=== PATIENT | male | born 1960 | race Caucasian/White ===

== ENCOUNTER 2017-06-13 12:33 | Inpatient (IN) | payer MEDICARE, MEDICAID ==
[2017-06-13] MEDS: ALBUTEROL 0.5% (NEB) 2.5 MG/0.5 ML AMP INH (13:07)
[2017-06-13] MEDS: SODIUM CHLORIDE 0.9% 1L BAG IV* (13:11)
[2017-06-13] MEDS: ACETAMINOPHEN 325 MG TAB PO (13:11)
[2017-06-13 13:13] LABS: ADD MAN DIFF? NO
[2017-06-13 13:14] LABS: WHITE BLOOD COUNT 18.3 10^3/ul (4.8-10.8)
[2017-06-13 13:14] LABS: ABNORMAL IP MESSAGE 1; BASOPHILS % 0.2 % (0.0-2.0); EOSINOPHILS % 0.2 % (0.0-7.0); HEMATOCRIT 30.4 % (42.0-52.0); HEMOGLOBIN 10.5 g/dl (14.0-18.0); LYMPHOCYTES # 0.8 10^3/ul (0.8-2.9); LYMPHOCYTES % 4.5 % (15.0-51.0); MEAN CORPUSCULAR HEMOGLOBIN 30.7 pg (29.0-33.0); MEAN CORPUSCULAR HGB CONC 34.5 g/dl (32.0-37.0); MEAN CORPUSCULAR VOLUME 88.9 fl (82.0-101.0); MEAN PLATELET VOLUME 9.9 fl (7.4-10.4); MONOCYTE # 1.9 10^3/ul (0.3-0.9); MONOCYTES % 10.3 % (0.0-11.0); NEUTROPHIL # 15.4 10^3/ul (1.6-7.5); NEUTROPHILS % 84.3 % (39.0-77.0); PLATELET COUNT 160 10^3/UL (140-415); POSITIVE DIFF @See below; RED BLOOD COUNT 3.42 10^6/ul (4.70-6.10); RED CELL DISTRIBUTION WIDTH 13.2 % (11.5-14.5)
[2017-06-13] MEDS: CEFTRIAXONE 1 GM/50 ML (PMX) 50 ML IVPB (13:29)
[2017-06-13 13:32] LABS: LACTIC ACID 1.9 mmol/L (0.5-2.0)
[2017-06-13 13:34] LABS: ALANINE AMINOTRANSFERASE 35 IU/L (13-69); ALBUMIN 5.1 g/dl (3.3-4.9); ALBUMIN/GLOBULIN RATIO 1.45; ALKALINE PHOSPHATASE 116 IU/L (42-121); ANION GAP 24 (8-16); ASPARTATE AMINO TRANSFERASE 21 IU/L (15-46); BLOOD UREA NITROGEN 32 mg/dl (7-20); CALCIUM 8.7 mg/dl (8.4-10.2); CARBON DIOXIDE 28 mmol/L (21-31); CHLORIDE 96 mmol/L (97-110); CREATININE 5.88 mg/dl (0.61-1.24); GLUCOSE 170 mg/dl (70-220); INR 0.93; LIPASE 137 U/L (23-300); PARTIAL THROMBOPLASTIN TIME 27.1 Sec (25.0-35.0); PROTIME 12.6 Sec (11.9-14.9); SODIUM 144 mmol/L (135-144); TOTAL PROTEIN 8.6 g/dl (6.1-8.1)
[2017-06-13 13:46] LABS: TROPONIN-I 0.017 ng/ml (0.00-0.12)
[2017-06-13] MEDS: AZITHROMYCIN 500MG/NS (PMX) 250 ML IVPB (13:53)
[2017-06-13 17:11] LABS: LACTIC ACID 4.7 mmol/L (0.5-2.0)
[2017-06-13] MEDS ORDERED: NACL 0.9% 3 ML SYG IV (19:30)
[2017-06-13] MEDS ORDERED: VANCOMYCIN IV PER PHARMACY XX (19:30)
[2017-06-13] MEDS: SOD CHLORIDE 0.9% 250 ML IV (19:30)
[2017-06-13] MEDS ORDERED: HYDROCODONE/APAP (5/325) TAB PO (19:30)
[2017-06-13] MEDS ORDERED: ONDANSETRON 4 MG INJ IV (19:30)
[2017-06-13] MEDS: PIPER-TAZO 2.25 GM (PMX) 50 ML IVPB (21:01)
[2017-06-13] MEDS: SOD CHLORIDE 0.9% 1,000 ML IV (21:22)
[2017-06-13] MEDS: FAMOTIDINE 20 MG INJ IV (21:30)
[2017-06-13] MEDS: HEPARIN 5,000 UNIT/0.5 ML VIAL SC (21:31)
[2017-06-13] MEDS: ATORVASTATIN 20 MG TAB PO (22:35)
[2017-06-13] MEDS: VANCOMYCIN 1.75 GM in SOD CHLORIDE 0.9% 500 ML IVPB (22:35)
[2017-06-13] MEDS: INSULIN ASPART [NOVOLOG] 3 ML PEN SC (23:22)
[2017-06-14] MEDS: ACCU-CHEK XX (02:00)
[2017-06-14] MEDS: INSULIN ASPART [NOVOLOG] 3 ML PEN SC ×4 (08:26→20:39)
[2017-06-14] MEDS ORDERED: [UNRECOGNIZED DRUG - REMARK] XX (09:00)
[2017-06-14] MEDS: TAMSULOSIN (SR) 0.4 MG CAP PO (09:30)
[2017-06-14] MEDS: PIPER-TAZO 2.25 GM (PMX) 50 ML IVPB ×2 (09:30→20:22)
[2017-06-14] MEDS: METOCLOPRAMIDE 10 MG TAB PO (09:31)
[2017-06-14] MEDS: ASPIRIN 81 MG TAB PO (09:31)
[2017-06-14] MEDS: CHOLECALCIFEROL 1,000 UNIT TAB PO (09:31)
[2017-06-14] MEDS: ALLOPURINOL 100 MG TAB PO (09:31)
[2017-06-14] MEDS: HEPARIN 5,000 UNIT/0.5 ML VIAL SC ×2 (09:32→20:23)
[2017-06-14] MEDS: SOD CHLORIDE 0.9% 1,000 ML IV ×2 (11:46→18:34)
[2017-06-14 14:00] LABS: ADD MAN DIFF? NO
[2017-06-14 14:03] LABS: WHITE BLOOD COUNT 12.5 10^3/ul (4.8-10.8)
[2017-06-14 14:03] LABS: BASOPHIL # 0.1 10^3/ul (0.0-0.1); BASOPHILS % 0.5 % (0.0-2.0); EOSINOPHILS % 0.2 % (0.0-7.0); HEMATOCRIT 28.6 % (42.0-52.0); HEMOGLOBIN 9.5 g/dl (14.0-18.0); LYMPHOCYTES # 1.9 10^3/ul (0.8-2.9); LYMPHOCYTES % 15.1 % (15.0-51.0); MEAN CORPUSCULAR HGB CONC 33.2 g/dl (32.0-37.0); MEAN CORPUSCULAR VOLUME 90.2 fl (82.0-101.0); MEAN PLATELET VOLUME 9.9 fl (7.4-10.4); MONOCYTE # 1.4 10^3/ul (0.3-0.9); NEUTROPHIL # 9.1 10^3/ul (1.6-7.5); NEUTROPHILS % 72.6 % (39.0-77.0); PLATELET COUNT 155 10^3/UL (140-415); RED BLOOD COUNT 3.17 10^6/ul (4.70-6.10); RED CELL DISTRIBUTION WIDTH 13.2 % (11.5-14.5)
[2017-06-14] MEDS ORDERED: PHENOL 1.4% SOLN 180 ML BTL MT (15:30)
[2017-06-14] MEDS: SEVELAMER 800 MG TAB PO (17:52)
[2017-06-14] MEDS: SERTRALINE 50 MG TAB PO (17:53)
[2017-06-14] MEDS: NIFEdipine (XL) 60 MG TAB PO (19:04)
[2017-06-14] MEDS: BENAZEPRIL 40 MG TAB PO (19:55)
[2017-06-14] MEDS: ATORVASTATIN 20 MG TAB PO (20:21)
[2017-06-14] MEDS: METOPROLOL 25 MG TAB PO (20:21)
[2017-06-15] MEDS: ACCU-CHEK XX (02:00)
[2017-06-15] MEDS: VANCOMYCIN RANDOM LEVEL XX (05:28)
[2017-06-15 06:24] LABS: ADD MAN DIFF? NO
[2017-06-15 06:29] LABS: BASOPHIL # 0.1 10^3/ul (0.0-0.1); BASOPHILS % 0.5 % (0.0-2.0); EOSINOPHILS % 0.1 % (0.0-7.0); HEMATOCRIT 27.2 % (42.0-52.0); HEMOGLOBIN 9.1 g/dl (14.0-18.0); LYMPHOCYTES # 2.1 10^3/ul (0.8-2.9); LYMPHOCYTES % 13.9 % (15.0-51.0); MEAN CORPUSCULAR HEMOGLOBIN 30.5 pg (29.0-33.0); MEAN CORPUSCULAR HGB CONC 33.5 g/dl (32.0-37.0); MEAN CORPUSCULAR VOLUME 91.3 fl (82.0-101.0); MEAN PLATELET VOLUME 10.2 fl (7.4-10.4); MONOCYTE # 1.2 10^3/ul (0.3-0.9); MONOCYTES % 7.7 % (0.0-11.0); NEUTROPHIL # 11.6 10^3/ul (1.6-7.5); NEUTROPHILS % 77.2 % (39.0-77.0); PLATELET COUNT 177 10^3/UL (140-415); RED BLOOD COUNT 2.98 10^6/ul (4.70-6.10); RED CELL DISTRIBUTION WIDTH 13.2 % (11.5-14.5)
[2017-06-15 06:29] LABS: WHITE BLOOD COUNT 15.1 10^3/ul (4.8-10.8)
[2017-06-15 07:17] LABS: ANION GAP 23 (8-16); BLOOD UREA NITROGEN 64 mg/dl (7-20); CALCIUM 7.8 mg/dl (8.4-10.2); CARBON DIOXIDE 24 mmol/L (21-31); CHLORIDE 98 mmol/L (97-110); CREATININE 9.08 mg/dl (0.61-1.24); GLUCOSE 163 mg/dl (70-220); POTASSIUM 5.1 mmol/L (3.5-5.1); SODIUM 140 mmol/L (135-144)
[2017-06-15 08:05] LABS: HEMOGLOBIN A1C 7.2 % (0-5.9)
[2017-06-15] MEDS: PIPER-TAZO 2.25 GM (PMX) 50 ML IVPB ×2 (08:40→21:55)
[2017-06-15] MEDS: CHOLECALCIFEROL 1,000 UNIT TAB PO (08:40)
[2017-06-15] MEDS: SERTRALINE 50 MG TAB PO (08:41)
[2017-06-15] MEDS: SEVELAMER 800 MG TAB PO ×3 (08:41→18:32)
[2017-06-15] MEDS: METOCLOPRAMIDE 10 MG TAB PO (08:41)
[2017-06-15] MEDS: TAMSULOSIN (SR) 0.4 MG CAP PO (08:41)
[2017-06-15] MEDS: BENAZEPRIL 40 MG TAB PO (08:42)
[2017-06-15] MEDS: NIFEdipine (XL) 60 MG TAB PO (08:42)
[2017-06-15] MEDS: ALLOPURINOL 100 MG TAB PO (08:43)
[2017-06-15] MEDS: METOPROLOL 25 MG TAB PO ×2 (08:43→21:59)
[2017-06-15] MEDS: ASPIRIN 81 MG TAB PO (08:43)
[2017-06-15] MEDS: FUROSEMIDE 40 MG TAB PO (08:44)
[2017-06-15] MEDS ORDERED: NIFEdipine (XL) 60 MG TAB PO (09:00)
[2017-06-15] MEDS: HEPARIN 5,000 UNIT/0.5 ML VIAL SC ×2 (09:24→21:00)
[2017-06-15] MEDS: INSULIN ASPART [NOVOLOG] 3 ML PEN SC ×4 (09:24→21:00)
[2017-06-15] MEDS: VANCOMYCIN 1 GM 250 ML IVPB (11:51)
[2017-06-15] MEDS ORDERED: GLUCOSE GEL 15 GRAM TUBE PO ×2 (14:00)
[2017-06-15] MEDS ORDERED: GLUCOSE GEL 15 GRAM TUBE BUCCAL (14:00)
[2017-06-15] MEDS ORDERED: GLUCAGON 1 MG INJ IM (14:00)
[2017-06-15] MEDS ORDERED: DEXTROSE 50% 50 ML SYRINGE IV ×2 (14:00)
[2017-06-15] MEDS: LINAGLIPTIN 5 MG TABLET PO (14:55)
[2017-06-15 16:28] LABS: HEPATITIS B SURFACE ANTIGEN NEGATIVE (NEGATIVE)
[2017-06-15 20:18] LABS: HEPATITIS B SURFACE ANTIBODY INDETERMINATE (NEGATIVE)
[2017-06-15] MEDS: ATORVASTATIN 20 MG TAB PO (21:55)
[2017-06-15] MEDS: FAMOTIDINE 20 MG INJ IV (21:55)
[2017-06-15] MEDS: INSULIN DETEMIR [LEVEMIR] 3ML CART SC (22:04)
[2017-06-15] MEDS: ACETAMINOPHEN 325 MG TAB PO (22:50)
[2017-06-16] MEDS: ACCU-CHEK XX (02:00)
[2017-06-16] MEDS ORDERED: ALBUTEROL/IPRATROPIUM (NEB) 3 ML AMP HHN (02:30)
[2017-06-16] MEDS: ALBUTEROL/IPRATROPIUM (NEB) 3 ML AMP HHN ×6 (02:49→21:11)
[2017-06-16] MEDS: INSULIN ASPART [NOVOLOG] 3 ML PEN SC ×4 (07:55→21:00)
[2017-06-16] MEDS: FUROSEMIDE 40 MG TAB PO (08:32)
[2017-06-16] MEDS: METOPROLOL 25 MG TAB PO ×2 (08:32→22:17)
[2017-06-16] MEDS: BENAZEPRIL 40 MG TAB PO (08:32)
[2017-06-16] MEDS: SEVELAMER 800 MG TAB PO ×3 (08:33→17:55)
[2017-06-16] MEDS: CHOLECALCIFEROL 1,000 UNIT TAB PO (08:33)
[2017-06-16] MEDS: SERTRALINE 50 MG TAB PO (08:33)
[2017-06-16] MEDS: METOCLOPRAMIDE 10 MG TAB PO (08:33)
[2017-06-16] MEDS: ASPIRIN 81 MG TAB PO (08:33)
[2017-06-16] MEDS: NIFEdipine (XL) 60 MG TAB PO (08:33)
[2017-06-16] MEDS: TAMSULOSIN (SR) 0.4 MG CAP PO (08:34)
[2017-06-16] MEDS: LINAGLIPTIN 5 MG TABLET PO (08:34)
[2017-06-16] MEDS: PIPER-TAZO 2.25 GM (PMX) 50 ML IVPB ×2 (08:34→21:52)
[2017-06-16] MEDS: ALLOPURINOL 100 MG TAB PO (08:34)
[2017-06-16] MEDS: HEPARIN 5,000 UNIT/0.5 ML VIAL SC ×2 (08:40→22:07)
[2017-06-16] MEDS: FAMOTIDINE 20 MG TAB PO (12:28)
[2017-06-16 17:02] LABS: ADD UMIC YES; UR AMORPHOUS CRYSTAL MODERATE /HPF (NONE SEEN); UR ASCORBIC ACID NEGATIVE (NEGATIVE); UR BACTERIA FEW /HPF (NONE SEEN); UR BILIRUBIN (Dip) NEGATIVE (NEGATIVE); UR BLOOD (Dip) NEGATIVE (NEGATIVE); UR CLARITY SLIGHTLY CLOUDY (CLEAR); UR COLOR AMBER (YELLOW); UR GLUCOSE (Dip) NEGATIVE (NEGATIVE); UR KETONES (Dip) NEGATIVE (NEGATIVE); UR LEUKOCYTE ESTERASE (Dip) NEGATIVE Leu/ul (NEGATIVE); UR NITRITE (Dip) NEGATIVE (NEGATIVE); UR RBC 2 /HPF (0-5); UR SPECIFIC GRAVITY (Dip) 1.017 (1.003-1.030); UR TOTAL PROTEIN (Dip) 2+ mg/dl (NEGATIVE); UR UROBILINOGEN (Dip) NEGATIVE (NEGATIVE); UR WBC 5 /HPF (0-5)
[2017-06-16] MEDS: ATORVASTATIN 20 MG TAB PO (21:52)
[2017-06-16] MEDS: INSULIN DETEMIR [LEVEMIR] 3ML CART SC (22:03)
[2017-06-17] MEDS: ALBUTEROL/IPRATROPIUM (NEB) 3 ML AMP HHN ×6 (00:55→21:24)
[2017-06-17] MEDS: ACCU-CHEK XX (02:00)
[2017-06-17 07:38] LABS: ADD MAN DIFF? NO
[2017-06-17 07:47] LABS: WHITE BLOOD COUNT 9.7 10^3/ul (4.8-10.8)
[2017-06-17 07:47] LABS: BASOPHILS % 0.3 % (0.0-2.0); EOSINOPHILS # 0.1 10^3/ul (0.0-0.5); HEMATOCRIT 25.7 % (42.0-52.0); HEMOGLOBIN 8.5 g/dl (14.0-18.0); LYMPHOCYTES # 1.5 10^3/ul (0.8-2.9); LYMPHOCYTES % 15.2 % (15.0-51.0); MEAN CORPUSCULAR HEMOGLOBIN 29.9 pg (29.0-33.0); MEAN CORPUSCULAR HGB CONC 33.1 g/dl (32.0-37.0); MEAN CORPUSCULAR VOLUME 90.5 fl (82.0-101.0); MEAN PLATELET VOLUME 10.8 fl (7.4-10.4); MONOCYTE # 0.7 10^3/ul (0.3-0.9); NEUTROPHIL # 7.3 10^3/ul (1.6-7.5); PLATELET COUNT 192 10^3/UL (140-415); RED BLOOD COUNT 2.84 10^6/ul (4.70-6.10); RED CELL DISTRIBUTION WIDTH 13.1 % (11.5-14.5)
[2017-06-17] MEDS: INSULIN ASPART [NOVOLOG] 3 ML PEN SC ×4 (07:55→21:00)
[2017-06-17] MEDS: SOD CHLORIDE 0.9% 100 ML (08:06)
[2017-06-17] MEDS: IOHEXOL 300MG/ML 150 ML BTL (08:06)
[2017-06-17 08:13] LABS: PHOSPHORUS 7.2 mg/dl (2.5-4.9)
[2017-06-17 08:13] LABS: MAGNESIUM 2.5 mg/dl (1.7-2.5)
[2017-06-17 08:18] LABS: ANION GAP 24 (8-16); BLOOD UREA NITROGEN 75 mg/dl (7-20); CALCIUM 7.7 mg/dl (8.4-10.2); CARBON DIOXIDE 23 mmol/L (21-31); CHLORIDE 98 mmol/L (97-110); CREATININE 9.31 mg/dl (0.61-1.24); GLUCOSE 87 mg/dl (70-220); POTASSIUM 4.4 mmol/L (3.5-5.1); SODIUM 141 mmol/L (135-144)
[2017-06-17] MEDS: HEPARIN 5,000 UNIT/0.5 ML VIAL SC ×2 (08:26→21:15)
[2017-06-17] MEDS: SEVELAMER 800 MG TAB PO ×3 (08:31→18:37)
[2017-06-17] MEDS: FAMOTIDINE 20 MG TAB PO (08:31)
[2017-06-17] MEDS: ALLOPURINOL 100 MG TAB PO (08:31)
[2017-06-17] MEDS: SERTRALINE 50 MG TAB PO (08:31)
[2017-06-17] MEDS: CHOLECALCIFEROL 1,000 UNIT TAB PO (08:31)
[2017-06-17] MEDS: ASPIRIN 81 MG TAB PO (08:31)
[2017-06-17] MEDS: LINAGLIPTIN 5 MG TABLET PO (08:32)
[2017-06-17] MEDS: TAMSULOSIN (SR) 0.4 MG CAP PO (08:33)
[2017-06-17] MEDS: METOCLOPRAMIDE 10 MG TAB PO (08:33)
[2017-06-17] MEDS: PIPER-TAZO 2.25 GM (PMX) 50 ML IVPB ×2 (08:33→21:15)
[2017-06-17] MEDS: BENAZEPRIL 40 MG TAB PO ×2 (08:51→13:40)
[2017-06-17] MEDS: NIFEdipine (XL) 60 MG TAB PO ×2 (08:51→13:40)
[2017-06-17] MEDS: METOPROLOL 25 MG TAB PO ×3 (08:51→21:08)
[2017-06-17] MEDS: FUROSEMIDE 40 MG TAB PO ×2 (08:51→13:40)
[2017-06-17] MEDS: ATORVASTATIN 20 MG TAB PO (21:07)
[2017-06-17] MEDS: INSULIN DETEMIR [LEVEMIR] 3ML CART SC (21:14)
[2017-06-18] MEDS: ALBUTEROL/IPRATROPIUM (NEB) 3 ML AMP HHN ×6 (01:19→20:00)
[2017-06-18] MEDS: ACCU-CHEK XX (02:00)
[2017-06-18 06:05] LABS: ADD MAN DIFF? NO
[2017-06-18 06:40] LABS: WHITE BLOOD COUNT 11.2 10^3/ul (4.8-10.8)
[2017-06-18 06:40] LABS: BASOPHILS % 0.3 % (0.0-2.0); EOSINOPHILS # 0.2 10^3/ul (0.0-0.5); HEMATOCRIT 28.5 % (42.0-52.0); HEMOGLOBIN 9.5 g/dl (14.0-18.0); LYMPHOCYTES # 1.4 10^3/ul (0.8-2.9); LYMPHOCYTES % 12.5 % (15.0-51.0); MEAN CORPUSCULAR HGB CONC 33.3 g/dl (32.0-37.0); MEAN CORPUSCULAR VOLUME 89.9 fl (82.0-101.0); MEAN PLATELET VOLUME 10.5 fl (7.4-10.4); MONOCYTE # 0.9 10^3/ul (0.3-0.9); MONOCYTES % 7.6 % (0.0-11.0); NEUTROPHIL # 8.7 10^3/ul (1.6-7.5); NEUTROPHILS % 77.3 % (39.0-77.0); PLATELET COUNT 227 10^3/UL (140-415); RED BLOOD COUNT 3.17 10^6/ul (4.70-6.10); RED CELL DISTRIBUTION WIDTH 12.8 % (11.5-14.5)
[2017-06-18 07:05] LABS: VANCOMYCIN,RANDOM 14.5 ug/ml
[2017-06-18] MEDS: INSULIN ASPART [NOVOLOG] 3 ML PEN SC ×4 (07:55→20:24)
[2017-06-18] MEDS: PIPER-TAZO 2.25 GM (PMX) 50 ML IVPB ×2 (08:28→21:53)
[2017-06-18] MEDS: TAMSULOSIN (SR) 0.4 MG CAP PO (08:29)
[2017-06-18] MEDS: LINAGLIPTIN 5 MG TABLET PO (08:29)
[2017-06-18] MEDS: SEVELAMER 800 MG TAB PO ×3 (08:29→17:20)
[2017-06-18] MEDS: ALLOPURINOL 100 MG TAB PO (08:30)
[2017-06-18] MEDS: METOPROLOL 25 MG TAB PO ×2 (08:30→20:23)
[2017-06-18] MEDS: CHOLECALCIFEROL 1,000 UNIT TAB PO (08:31)
[2017-06-18] MEDS: NIFEdipine (XL) 60 MG TAB PO (08:31)
[2017-06-18] MEDS: BENAZEPRIL 40 MG TAB PO (08:33)
[2017-06-18] MEDS: HEPARIN 5,000 UNIT/0.5 ML VIAL SC ×2 (08:36→20:24)
[2017-06-18] MEDS: FUROSEMIDE 40 MG TAB PO (08:37)
[2017-06-18] MEDS: ASPIRIN 81 MG TAB PO (08:37)
[2017-06-18] MEDS: FAMOTIDINE 20 MG TAB PO (08:37)
[2017-06-18] MEDS: METOCLOPRAMIDE 10 MG TAB PO (08:37)
[2017-06-18] MEDS: SERTRALINE 50 MG TAB PO (08:37)
[2017-06-18] MEDS: VANCOMYCIN 1 GM 250 ML IVPB (15:22)
[2017-06-18] MEDS: ATORVASTATIN 20 MG TAB PO (20:21)
[2017-06-18] MEDS: INSULIN DETEMIR [LEVEMIR] 3ML CART SC (20:24)
[2017-06-19] MEDS: ALBUTEROL/IPRATROPIUM (NEB) 3 ML AMP HHN ×6 (01:11→21:06)
[2017-06-19] MEDS: ACCU-CHEK XX (02:00)
[2017-06-19] MEDS: INSULIN ASPART [NOVOLOG] 3 ML PEN SC ×4 (08:00→20:52)
[2017-06-19] MEDS: ALLOPURINOL 100 MG TAB PO (08:11)
[2017-06-19] MEDS: SEVELAMER 800 MG TAB PO ×3 (08:11→17:41)
[2017-06-19] MEDS: ASPIRIN 81 MG TAB PO (08:11)
[2017-06-19] MEDS: TAMSULOSIN (SR) 0.4 MG CAP PO (08:11)
[2017-06-19] MEDS: METOCLOPRAMIDE 10 MG TAB PO (08:11)
[2017-06-19] MEDS: FAMOTIDINE 20 MG TAB PO (08:11)
[2017-06-19] MEDS: CHOLECALCIFEROL 1,000 UNIT TAB PO (08:11)
[2017-06-19] MEDS: SERTRALINE 50 MG TAB PO (08:11)
[2017-06-19] MEDS: LINAGLIPTIN 5 MG TABLET PO (08:11)
[2017-06-19] MEDS: PIPER-TAZO 2.25 GM (PMX) 50 ML IVPB ×2 (08:39→20:50)
[2017-06-19] MEDS: FUROSEMIDE 40 MG TAB PO (08:44)
[2017-06-19] MEDS: METOPROLOL 25 MG TAB PO ×2 (08:44→20:51)
[2017-06-19] MEDS: HEPARIN 5,000 UNIT/0.5 ML VIAL SC ×2 (08:44→20:50)
[2017-06-19] MEDS: NIFEdipine (XL) 60 MG TAB PO (08:44)
[2017-06-19] MEDS: BENAZEPRIL 40 MG TAB PO (08:44)
[2017-06-19] MEDS: INSULIN DETEMIR [LEVEMIR] 3ML CART SC (20:49)
[2017-06-19] MEDS: ATORVASTATIN 20 MG TAB PO (20:51)
[2017-06-20] MEDS: ALBUTEROL/IPRATROPIUM (NEB) 3 ML AMP HHN ×7 (00:56→20:31)
[2017-06-20] MEDS: ACCU-CHEK XX (02:00)
[2017-06-20 05:57] LABS: ADD MAN DIFF? NO
[2017-06-20 06:00] LABS: WHITE BLOOD COUNT 8.4 10^3/ul (4.8-10.8)
[2017-06-20 06:00] LABS: BASOPHILS % 0.5 % (0.0-2.0); EOSINOPHILS # 0.3 10^3/ul (0.0-0.5); EOSINOPHILS % 3.1 % (0.0-7.0); HEMOGLOBIN 9.4 g/dl (14.0-18.0); LYMPHOCYTES # 1.3 10^3/ul (0.8-2.9); MEAN CORPUSCULAR HEMOGLOBIN 29.8 pg (29.0-33.0); MEAN CORPUSCULAR HGB CONC 33.6 g/dl (32.0-37.0); MEAN CORPUSCULAR VOLUME 88.9 fl (82.0-101.0); MONOCYTE # 0.8 10^3/ul (0.3-0.9); MONOCYTES % 9.6 % (0.0-11.0); NEUTROPHILS % 71.1 % (39.0-77.0); PLATELET COUNT 253 10^3/UL (140-415); RED BLOOD COUNT 3.15 10^6/ul (4.70-6.10); RED CELL DISTRIBUTION WIDTH 12.9 % (11.5-14.5)
[2017-06-20 06:34] LABS: ANION GAP 18 (8-16); BLOOD UREA NITROGEN 33 mg/dl (7-20); CALCIUM 7.9 mg/dl (8.4-10.2); CARBON DIOXIDE 29 mmol/L (21-31); CHLORIDE 99 mmol/L (97-110); CREATININE 6.06 mg/dl (0.61-1.24); GLUCOSE 94 mg/dl (70-220); POTASSIUM 4.1 mmol/L (3.5-5.1); SODIUM 142 mmol/L (135-144)
[2017-06-20] MEDS: INSULIN ASPART [NOVOLOG] 3 ML PEN SC ×4 (08:00→20:10)
[2017-06-20] MEDS: FAMOTIDINE 20 MG TAB PO (08:25)
[2017-06-20] MEDS: CHOLECALCIFEROL 1,000 UNIT TAB PO (08:25)
[2017-06-20] MEDS: ASPIRIN 81 MG TAB PO (08:25)
[2017-06-20] MEDS: TAMSULOSIN (SR) 0.4 MG CAP PO (08:25)
[2017-06-20] MEDS: METOCLOPRAMIDE 10 MG TAB PO (08:25)
[2017-06-20] MEDS: BENAZEPRIL 40 MG TAB PO (08:25)
[2017-06-20] MEDS: FUROSEMIDE 40 MG TAB PO (08:25)
[2017-06-20] MEDS: SEVELAMER 800 MG TAB PO ×3 (08:25→17:36)
[2017-06-20] MEDS: NIFEdipine (XL) 60 MG TAB PO (08:25)
[2017-06-20] MEDS: LINAGLIPTIN 5 MG TABLET PO (08:25)
[2017-06-20] MEDS: SERTRALINE 50 MG TAB PO (08:26)
[2017-06-20] MEDS: METOPROLOL 25 MG TAB PO ×2 (08:26→20:08)
[2017-06-20] MEDS: ALLOPURINOL 100 MG TAB PO (08:26)
[2017-06-20] MEDS: HEPARIN 5,000 UNIT/0.5 ML VIAL SC ×2 (08:27→20:10)
[2017-06-20] MEDS: PIPER-TAZO 2.25 GM (PMX) 50 ML IVPB (08:31)
[2017-06-20] MEDS: LEVOFLOXACIN 250 MG TAB PO (14:47)
[2017-06-20] MEDS: ATORVASTATIN 20 MG TAB PO (20:08)
[2017-06-20] MEDS: INSULIN DETEMIR [LEVEMIR] 3ML CART SC (20:21)
[2017-06-21] MEDS: ALBUTEROL/IPRATROPIUM (NEB) 3 ML AMP HHN ×6 (01:56→20:00)
[2017-06-21] MEDS: ACCU-CHEK XX (02:00)
[2017-06-21] MEDS: INSULIN ASPART [NOVOLOG] 3 ML PEN SC ×4 (08:00→21:00)
[2017-06-21] MEDS: CHOLECALCIFEROL 1,000 UNIT TAB PO (08:33)
[2017-06-21] MEDS: SERTRALINE 50 MG TAB PO (08:33)
[2017-06-21] MEDS: LINAGLIPTIN 5 MG TABLET PO (08:33)
[2017-06-21] MEDS: BENAZEPRIL 40 MG TAB PO (08:33)
[2017-06-21] MEDS: FUROSEMIDE 40 MG TAB PO (08:34)
[2017-06-21] MEDS: TAMSULOSIN (SR) 0.4 MG CAP PO (08:34)
[2017-06-21] MEDS: SEVELAMER 800 MG TAB PO ×3 (08:34→17:47)
[2017-06-21] MEDS: METOPROLOL 25 MG TAB PO ×2 (08:34→21:17)
[2017-06-21] MEDS: HEPARIN 5,000 UNIT/0.5 ML VIAL SC ×2 (08:35→21:28)
[2017-06-21] MEDS: ALLOPURINOL 100 MG TAB PO (08:35)
[2017-06-21] MEDS: FAMOTIDINE 20 MG TAB PO (08:35)
[2017-06-21] MEDS: METOCLOPRAMIDE 10 MG TAB PO (08:35)
[2017-06-21] MEDS: ASPIRIN 81 MG TAB PO (08:35)
[2017-06-21] MEDS: NIFEdipine (XL) 60 MG TAB PO (08:37)
[2017-06-21] MEDS ORDERED: ALBUMIN HUMAN 25% 50 ML IV (15:30)
[2017-06-21] MEDS: ATORVASTATIN 20 MG TAB PO (21:16)
[2017-06-21] MEDS: VANCOMYCIN 1 GM 250 ML IVPB (21:16)
[2017-06-21] MEDS: INSULIN DETEMIR [LEVEMIR] 3ML CART SC (21:27)
[2017-06-22] MEDS: ALBUTEROL/IPRATROPIUM (NEB) 3 ML AMP HHN ×6 (01:28→21:07)
[2017-06-22] MEDS: ACCU-CHEK XX (02:00)
[2017-06-22] MEDS: LEVOFLOXACIN 250 MG TAB PO (05:53)
[2017-06-22] MEDS: INSULIN ASPART [NOVOLOG] 3 ML PEN SC ×4 (08:00→20:36)
[2017-06-22] MEDS: SEVELAMER 800 MG TAB PO ×3 (08:49→17:22)
[2017-06-22] MEDS: CHOLECALCIFEROL 1,000 UNIT TAB PO (08:50)
[2017-06-22] MEDS: LINAGLIPTIN 5 MG TABLET PO (08:50)
[2017-06-22] MEDS: FAMOTIDINE 20 MG TAB PO (08:50)
[2017-06-22] MEDS: SERTRALINE 50 MG TAB PO (08:50)
[2017-06-22] MEDS: ALLOPURINOL 100 MG TAB PO (08:51)
[2017-06-22] MEDS: TAMSULOSIN (SR) 0.4 MG CAP PO (08:51)
[2017-06-22] MEDS: ASPIRIN 81 MG TAB PO (08:51)
[2017-06-22] MEDS: FUROSEMIDE 40 MG TAB PO (08:51)
[2017-06-22] MEDS: METOCLOPRAMIDE 10 MG TAB PO (08:51)
[2017-06-22] MEDS: HEPARIN 5,000 UNIT/0.5 ML VIAL SC ×2 (08:52→20:35)
[2017-06-22] MEDS: BENAZEPRIL 40 MG TAB PO ×2 (09:00→14:33)
[2017-06-22] MEDS: NIFEdipine (XL) 60 MG TAB PO ×2 (09:00→14:31)
[2017-06-22] MEDS: METOPROLOL 25 MG TAB PO ×3 (09:00→20:27)
[2017-06-22] MEDS: ATORVASTATIN 20 MG TAB PO (20:27)
[2017-06-22] MEDS: INSULIN DETEMIR [LEVEMIR] 3ML CART SC (20:36)
[2017-06-23] MEDS: ALBUTEROL/IPRATROPIUM (NEB) 3 ML AMP HHN ×6 (01:29→21:17)
[2017-06-23] MEDS: ACCU-CHEK XX (02:00)
[2017-06-23] MEDS: INSULIN ASPART [NOVOLOG] 3 ML PEN SC ×4 (08:00→20:50)
[2017-06-23] MEDS: SEVELAMER 800 MG TAB PO ×3 (08:06→17:33)
[2017-06-23] MEDS: FUROSEMIDE 40 MG TAB PO (08:40)
[2017-06-23] MEDS: ALLOPURINOL 100 MG TAB PO (08:40)
[2017-06-23] MEDS: LINAGLIPTIN 5 MG TABLET PO (08:40)
[2017-06-23] MEDS: ASPIRIN 81 MG TAB PO (08:40)
[2017-06-23] MEDS: FAMOTIDINE 20 MG TAB PO (08:40)
[2017-06-23] MEDS: METOCLOPRAMIDE 10 MG TAB PO (08:41)
[2017-06-23] MEDS: BENAZEPRIL 40 MG TAB PO (08:41)
[2017-06-23] MEDS: CHOLECALCIFEROL 1,000 UNIT TAB PO (08:41)
[2017-06-23] MEDS: METOPROLOL 25 MG TAB PO ×2 (08:41→20:53)
[2017-06-23] MEDS: NIFEdipine (XL) 60 MG TAB PO (08:41)
[2017-06-23] MEDS: SERTRALINE 50 MG TAB PO (08:42)
[2017-06-23] MEDS: TAMSULOSIN (SR) 0.4 MG CAP PO (08:42)
[2017-06-23] MEDS: HEPARIN 5,000 UNIT/0.5 ML VIAL SC ×2 (08:43→20:51)
[2017-06-23] MEDS ORDERED: BISACODYL (EC) 5 MG TAB PO (16:00)
[2017-06-23] MEDS: ATORVASTATIN 20 MG TAB PO (20:50)
[2017-06-23] MEDS: INSULIN DETEMIR [LEVEMIR] 3ML CART SC (20:52)
[2017-06-24] MEDS: ALBUTEROL/IPRATROPIUM (NEB) 3 ML AMP HHN ×5 (01:19→17:00)
[2017-06-24] MEDS: ACCU-CHEK XX (02:00)
[2017-06-24] MEDS: LEVOFLOXACIN 250 MG TAB PO (05:22)
[2017-06-24] MEDS: INSULIN ASPART [NOVOLOG] 3 ML PEN SC ×3 (08:00→17:37)
[2017-06-24] MEDS: SEVELAMER 800 MG TAB PO ×3 (08:21→17:32)
[2017-06-24] MEDS: METOPROLOL 25 MG TAB PO (09:00)
[2017-06-24] MEDS: NIFEdipine (XL) 60 MG TAB PO (09:00)
[2017-06-24] MEDS: FUROSEMIDE 40 MG TAB PO (09:00)
[2017-06-24] MEDS: BENAZEPRIL 40 MG TAB PO (09:00)
[2017-06-24] MEDS: METOCLOPRAMIDE 10 MG TAB PO (09:08)
[2017-06-24] MEDS: SERTRALINE 50 MG TAB PO (09:08)
[2017-06-24] MEDS: TAMSULOSIN (SR) 0.4 MG CAP PO (09:08)
[2017-06-24] MEDS: CHOLECALCIFEROL 1,000 UNIT TAB PO (09:08)
[2017-06-24] MEDS: LINAGLIPTIN 5 MG TABLET PO (09:08)
[2017-06-24] MEDS: ALLOPURINOL 100 MG TAB PO (09:08)
[2017-06-24] MEDS: ASPIRIN 81 MG TAB PO (09:09)
[2017-06-24] MEDS: FAMOTIDINE 20 MG TAB PO (09:09)
[2017-06-24] MEDS: HEPARIN 5,000 UNIT/0.5 ML VIAL SC (09:23)
[2017-06-24] MEDS: hydrALAzine 20 MG INJ IV (20:10)
== END 2017-06-24 20:29 | DRG 871 ==
LOC: PP2 06-18 10:00 → E/R 12:33 → TEL 14:18
PROC: 5A1D70Z Performance of Urinary Filtration, Intermittent, Less than 6 Hours Per Day (ICD-10-PCS; principal; 2017-06-15)
DX: A41.9 Sepsis, unspecified organism (principal); N18.6 End stage renal disease; J18.9 Pneumonia, unspecified organism; E87.2 Acidosis; I12.0 Hypertensive chronic kidney disease with stage 5 chronic kidney disease or end stage renal disease; E11.22 Type 2 diabetes mellitus with diabetic chronic kidney disease; E11.65 Type 2 diabetes mellitus with hyperglycemia; Z99.2 Dependence on renal dialysis; R09.02 Hypoxemia; D64.9 Anemia, unspecified; N40.0 Benign prostatic hyperplasia without lower urinary tract symptoms; M10.9 Gout, unspecified; G47.30 Sleep apnea, unspecified; J40 Bronchitis, not specified as acute or chronic; N30.90 Cystitis, unspecified without hematuria
CPT/HCPCS: 36415; 70491; 71045; 74176; 80048; 80053; 80202; 81001; 82962; 83036; 83605; 83690; 83735; 84100; 84484; 85025; 85610; 85730; 86706; 87040; 87070; 87086; 87340; 87400; 89220; 90935; 93005; 93306; 94640; 94644; 94664; 96365; 96372; 96375; 97162; 99291-25